=== PATIENT | female | born 1955 | race Caucasian/White ===

== ENCOUNTER 2018-03-18 02:11 | Day surgery (SDC) | payer OTHER ==
[~2018-03-18] VITALS: Ht 170.2 cm; Wt 64.4 kg
[~2018-03-18 02:11] MED LIST: CALC600T59 PO; IBU800 PO; LOR5/325 PO; MULT1CAP41 PO
[2018-03-18 06:10] VITALS: BP 120/86
[2018-03-18 08:06] VITALS: BP 95/63
[2018-03-18 08:27] VITALS: BP 99/70
[2018-03-18 08:52] VITALS: BP 112/71
[2018-03-18 08:54] VITALS: BP 103/84
[2018-03-18] MEDS ORDERED: LIDOCAINE/SOD BICARB 8.4% SYR ID ONE (10:00)
[2018-03-18] MEDS ORDERED: NORMOSOL R SOLN(*) 1000 ML BAG 1,000 ML IV PRN (10:00)
== END 2018-03-18 09:00 | disposition home or self-care (01) ==
LOC: OR 02:11
PROVIDERS: ATTEND Family Medicine
DX: Z12.11 Encounter for screening for malignant neoplasm of colon (principal)

== ENCOUNTER → 2018-09-09 | Outpatient (CLI) | payer OTHER ==
--- NOTE | 2018-09-10 14:47 | RADIOLOGY IMAGING REPORT ---
FACILITY: [facility] - [place], [place] PATIENT NAME: MALACHI JAMA : [id number] MR: [id number] V: [id number] EXAM DATE: [id number] ORDERING PHYSICIAN: ALICE NGUYEN TECHNOLOGIST: Danya Patrick PROCEDURE: BILATERAL DIGITAL SCREENING MAMMOGRAM WITH CAD ASSISTED INTERPRETATION & 3D TOMOSYNTHESIS REASON FOR STUDY: Screening. FAMILY HISTORY OF BREAST CANCER: BREAST PROCEDURES/TREATMENTS: COMPARISON: Prior mammogram 08/03/2016. VIEWS OBTAINED: 2D & 3D full field CC & MLO. BREAST DENSITY: The breast tissue demonstrates scattered fibroglandular tissue elements. MAMMOGRAM FINDINGS: There is no suspicious mass, calcification, or architectural distortion. IMPRESSION: BIRADS 1: Negative. No mammographic evidence for malignancy. DIAGNOSTIC CATEGORY 1--NEGATIVE. RECOMMENDATIONS: ROUTINE MAMMOGRAM AND CLINICAL EVALUATION IN 1 YEAR. Dictated by: Juan Luu M.D. on 09/10/2018 at 13:08 Transcribed by: SANDY on 09/10/2018 at 14:23 Approved by: Juan Luu M.D. on 09/10/2018 at 14:46 [facility]
== END ==
LOC: MAMO 00:38
PROVIDERS: ATTEND Obstetrics & Gynecology
DX: Z12.31 Encounter for screening mammogram for malignant neoplasm of breast (principal); Z80.3 Family history of malignant neoplasm of breast
CPT/HCPCS: 77063; 77067